=== PATIENT | female | born 1995 | race Caucasian/White ===

== ENCOUNTER 2017-05-31 22:54 | Emergency (ER) | payer OTHER ==
[~2017-05-31] VITALS: Ht 167.6 cm; Wt 59.1 kg
[2017-05-31 23:59] LABS: BASO % 0.6 % (0.0-1.0); EOS # 0.1 10^3/uL (0.0-0.50); EOS % 1.7 % (0.0-3.0); IMMATURE GRANULOCYTE % 0.3 % (0-0); LYMPH # 2.2 10^3/uL (1.5-6.5); LYMPH % 33.1 % (24.0-44.0); MEAN CORPUSCULAR HGB CONC 34.6 g/dl (32.0-36.5); MEAN CORPUSCULAR VOLUME 89.5 fl (80.0-96.0); MONO # 0.4 10^3/uL (0.0-0.8); MONO % 6.6 % (0.0-5.0); NEUTROPHILS # 3.8 10^3/uL (1.8-7.7); NEUTROPHILS % 57.7 % (36.0-66.0); PLATELET COUNT, AUTOMATED 219 10^3/uL (150-450); RED CELL DISTRIBUTION WIDTH 11.9 % (11.5-14.5); WHITE BLOOD COUNT 6.5 10^3/uL (4.0-10.0)
[2017-06-01 00:16] LABS: CONTROL LINE HCG INT CTR LINE PRESENT
[2017-06-01 00:19] LABS: ANION GAP 4 MEQ/L (8-16); BLOOD UREA NITROGEN 19 MG/DL (7-18); CALCIUM LEVEL 8.7 MG/DL (8.5-10.1); CARBON DIOXIDE LEVEL 29 MEQ/L (21-32); CHLORIDE LEVEL 106 MEQ/L (98-107); CREATININE FOR GFR 0.86 MG/DL (0.55-1.02); GLOMERULAR FILTRATION RATE > 60.0 (>60); GLUCOSE, FASTING 75 MG/DL (70-105); POTASSIUM SERUM 3.9 MEQ/L (3.5-5.1); SODIUM LEVEL 139 MEQ/L (136-145)
[2017-06-01] MEDS ORDERED: NS 1,000 ML IV ONE (00:30)
[2017-06-01 02:24] VITALS: BP 96/55
--- NOTE | 2017-06-01 07:25 | ECGEPIP ---
Stationary ECG Study [facility] - ED Test Date: 2017-05-31 Pat Name: MODESTA CARLOS Department: Room: - Gender: F Customer Service And Sales Consultant: Af : [id number] Requested By: DAMIAN RUDOLPH Order Number: [id number] Reading MD: Jorge Montoya Measurements Intervals [place] Rate: 84 P: 12 SC: 138 QRS: 71 QRSD: 96 T: 56 QT: 329 QTc: 389 Interpretive Statements SINUS RHYTHM INCOMPLETE RIGHT BUNDLE BRANCH BLOCK NO PRIORS FOR COMPARISON Electronically Signed On 06-01-2017 7:25:20 EST by Jorge Montoya
== END 2017-06-01 02:32 | disposition home or self-care (01) ==
LOC: M ED 22:54
DX: I45.2 Bifascicular block (principal); E86.9 Volume depletion, unspecified; R55 Syncope and collapse